=== PATIENT | male | born 1940 | race Two or more races ===

== ENCOUNTER 2016-09-08 14:14 | Outpatient (CLI) | payer MEDICARE | END 2016-09-08 23:59 | disposition home health service (06) | LOC: WOU 14:14 | PROVIDERS: ATTEND Specialist | DX: E11.621 Type 2 diabetes mellitus with foot ulcer (principal); L97.424 Non-pressure chronic ulcer of left heel and midfoot with necrosis of bone; Z89.612 Acquired absence of left leg above knee; E11.29 Type 2 diabetes mellitus with other diabetic kidney complication; E11.42 Type 2 diabetes mellitus with diabetic polyneuropathy; I25.10 Atherosclerotic heart disease of native coronary artery without angina pectoris; E11.69 Type 2 diabetes mellitus with other specified complication; M86.471 Chronic osteomyelitis with draining sinus, right ankle and foot; B96.5 Pseudomonas (aeruginosa) (mallei) (pseudomallei) as the cause of diseases classified elsewhere | CPT/HCPCS: 11044; A6402 ==

== ENCOUNTER 2016-09-29 13:30 | Outpatient (CLI) | payer MEDICARE | END 2016-09-29 23:59 | disposition home health service (06) | LOC: WOU 13:30 | PROVIDERS: ATTEND Specialist | DX: E11.621 Type 2 diabetes mellitus with foot ulcer (principal); L97.412 Non-pressure chronic ulcer of right heel and midfoot with fat layer exposed; E11.52 Type 2 diabetes mellitus with diabetic peripheral angiopathy with gangrene; Z89.612 Acquired absence of left leg above knee; N28.9 Disorder of kidney and ureter, unspecified | CPT/HCPCS: 15275; A6402 ==

== ENCOUNTER 2016-10-06 13:38 | Outpatient (CLI) | payer MEDICARE | END 2016-10-06 23:59 | disposition home health service (06) | LOC: WOU 13:38 | PROVIDERS: ATTEND Specialist | DX: E11.621 Type 2 diabetes mellitus with foot ulcer (principal); L97.412 Non-pressure chronic ulcer of right heel and midfoot with fat layer exposed; E11.9 Type 2 diabetes mellitus without complications; M86.471 Chronic osteomyelitis with draining sinus, right ankle and foot; E11.42 Type 2 diabetes mellitus with diabetic polyneuropathy; Z89.611 Acquired absence of right leg above knee; E11.22 Type 2 diabetes mellitus with diabetic chronic kidney disease; N28.9 Disorder of kidney and ureter, unspecified; I25.10 Atherosclerotic heart disease of native coronary artery without angina pectoris | CPT/HCPCS: 15275; A6402; Q4131 ×2 ==

== ENCOUNTER 2016-10-13 14:17 | Outpatient (CLI) | payer MEDICARE | END 2016-10-13 23:59 | disposition home health service (06) | LOC: WOU 14:17 | PROVIDERS: ATTEND Specialist | DX: E11.621 Type 2 diabetes mellitus with foot ulcer (principal); L97.413 Non-pressure chronic ulcer of right heel and midfoot with necrosis of muscle; Z89.612 Acquired absence of left leg above knee; I25.10 Atherosclerotic heart disease of native coronary artery without angina pectoris; E11.29 Type 2 diabetes mellitus with other diabetic kidney complication; N28.9 Disorder of kidney and ureter, unspecified; E11.69 Type 2 diabetes mellitus with other specified complication; M86.471 Chronic osteomyelitis with draining sinus, right ankle and foot | CPT/HCPCS: 11043; A6402 ==

== ENCOUNTER 2016-11-03 14:13 | Outpatient (CLI) | payer MEDICARE | END 2016-11-03 23:59 | disposition home health service (06) | LOC: WOU 14:13 | PROVIDERS: ATTEND Specialist | DX: E11.621 Type 2 diabetes mellitus with foot ulcer (principal); L97.414 Non-pressure chronic ulcer of right heel and midfoot with necrosis of bone; E11.9 Type 2 diabetes mellitus without complications; M86.471 Chronic osteomyelitis with draining sinus, right ankle and foot; I25.10 Atherosclerotic heart disease of native coronary artery without angina pectoris; Z89.612 Acquired absence of left leg above knee | CPT/HCPCS: 11044; 87070; 87077; 87186; 88305 ×2; 88311; 88312; A6402 ==

== ENCOUNTER 2016-11-10 14:15 | Outpatient (CLI) | payer MEDICARE | END 2016-11-10 23:59 | disposition home health service (06) | LOC: WOU 14:15 | PROVIDERS: ATTEND Specialist | DX: E11.69 Type 2 diabetes mellitus with other specified complication (principal); L89.614 Pressure ulcer of right heel, stage 4; M86.471 Chronic osteomyelitis with draining sinus, right ankle and foot; Z83.3 Family history of diabetes mellitus; Z87.891 Personal history of nicotine dependence; Z89.612 Acquired absence of left leg above knee; I25.10 Atherosclerotic heart disease of native coronary artery without angina pectoris; Z79.899 Other long term (current) drug therapy | CPT/HCPCS: 11042; A6402 ==

== ENCOUNTER 2016-11-17 14:15 | Outpatient (CLI) | payer MEDICARE | END 2016-11-17 23:59 | disposition home health service (06) | LOC: WOU 14:15 | PROVIDERS: ATTEND Specialist | DX: E11.621 Type 2 diabetes mellitus with foot ulcer (principal); L97.412 Non-pressure chronic ulcer of right heel and midfoot with fat layer exposed; E11.42 Type 2 diabetes mellitus with diabetic polyneuropathy; Z89.612 Acquired absence of left leg above knee; E11.69 Type 2 diabetes mellitus with other specified complication; M86.471 Chronic osteomyelitis with draining sinus, right ankle and foot | CPT/HCPCS: 15275; A6402; Q4133; 11042 ==

== ENCOUNTER 2016-11-24 14:13 | Outpatient (CLI) | payer MEDICARE | END 2016-11-24 23:59 | disposition home health service (06) | LOC: WOU 14:13 | PROVIDERS: ATTEND Specialist | DX: E11.621 Type 2 diabetes mellitus with foot ulcer (principal); L97.414 Non-pressure chronic ulcer of right heel and midfoot with necrosis of bone; E11.42 Type 2 diabetes mellitus with diabetic polyneuropathy; Z89.612 Acquired absence of left leg above knee; E11.69 Type 2 diabetes mellitus with other specified complication; M86.471 Chronic osteomyelitis with draining sinus, right ankle and foot; B96.5 Pseudomonas (aeruginosa) (mallei) (pseudomallei) as the cause of diseases classified elsewhere | CPT/HCPCS: 15275; A6402 ==

== ENCOUNTER 2016-12-01 14:00 | Outpatient (CLI) | payer MEDICARE | END 2016-12-01 23:59 | disposition home health service (06) | LOC: WOU 14:00 | PROVIDERS: ATTEND Specialist | DX: E11.621 Type 2 diabetes mellitus with foot ulcer (principal); L89.614 Pressure ulcer of right heel, stage 4; E11.69 Type 2 diabetes mellitus with other specified complication; M86.471 Chronic osteomyelitis with draining sinus, right ankle and foot; E11.42 Type 2 diabetes mellitus with diabetic polyneuropathy; Z89.612 Acquired absence of left leg above knee; I25.10 Atherosclerotic heart disease of native coronary artery without angina pectoris; N28.9 Disorder of kidney and ureter, unspecified; Z79.899 Other long term (current) drug therapy; E11.22 Type 2 diabetes mellitus with diabetic chronic kidney disease; N18.9 Chronic kidney disease, unspecified | CPT/HCPCS: 11042; A6402 ==

== ENCOUNTER 2016-12-15 14:12 | Outpatient (CLI) | payer MEDICARE, BC | END 2016-12-15 23:59 | disposition home health service (06) | LOC: WOU 14:12 | PROVIDERS: ATTEND Specialist | DX: E11.621 Type 2 diabetes mellitus with foot ulcer (principal); L97.413 Non-pressure chronic ulcer of right heel and midfoot with necrosis of muscle; E11.42 Type 2 diabetes mellitus with diabetic polyneuropathy; Z89.612 Acquired absence of left leg above knee; Z90.5 Acquired absence of kidney; E11.69 Type 2 diabetes mellitus with other specified complication; M86.671 Other chronic osteomyelitis, right ankle and foot; B96.5 Pseudomonas (aeruginosa) (mallei) (pseudomallei) as the cause of diseases classified elsewhere | CPT/HCPCS: 15275; A6402; Q4133 ==

== ENCOUNTER 2016-12-22 13:56 | Outpatient (CLI) | payer MEDICARE, BC | END 2016-12-22 23:59 | disposition home health service (06) | LOC: WOU 13:56 | PROVIDERS: ATTEND Specialist | DX: E11.621 Type 2 diabetes mellitus with foot ulcer (principal); L89.614 Pressure ulcer of right heel, stage 4; E11.42 Type 2 diabetes mellitus with diabetic polyneuropathy; E11.69 Type 2 diabetes mellitus with other specified complication; M86.471 Chronic osteomyelitis with draining sinus, right ankle and foot; Z89.612 Acquired absence of left leg above knee; Z89.431 Acquired absence of right foot; Z90.5 Acquired absence of kidney; I25.10 Atherosclerotic heart disease of native coronary artery without angina pectoris; Z79.84 Long term (current) use of oral hypoglycemic drugs | CPT/HCPCS: 15275; A6402 ==

== ENCOUNTER 2016-12-29 14:21 | Outpatient (CLI) | payer MEDICARE, BC | END 2016-12-29 23:59 | disposition home health service (06) | LOC: WOU 14:21 | PROVIDERS: ATTEND Specialist | DX: E11.621 Type 2 diabetes mellitus with foot ulcer (principal); L97.413 Non-pressure chronic ulcer of right heel and midfoot with necrosis of muscle; E11.42 Type 2 diabetes mellitus with diabetic polyneuropathy; Z89.612 Acquired absence of left leg above knee; E11.69 Type 2 diabetes mellitus with other specified complication; Z90.5 Acquired absence of kidney; M86.471 Chronic osteomyelitis with draining sinus, right ankle and foot | CPT/HCPCS: 15275; A6402 ×2; Q4132 ==

== ENCOUNTER 2017-01-05 14:11 | Outpatient (CLI) | payer MEDICARE, BC | END 2017-01-05 23:59 | disposition home health service (06) | LOC: WOU 14:11 | PROVIDERS: ATTEND Specialist | DX: E11.621 Type 2 diabetes mellitus with foot ulcer (principal); L97.413 Non-pressure chronic ulcer of right heel and midfoot with necrosis of muscle; E11.42 Type 2 diabetes mellitus with diabetic polyneuropathy; E11.69 Type 2 diabetes mellitus with other specified complication; M86.471 Chronic osteomyelitis with draining sinus, right ankle and foot; Z89.612 Acquired absence of left leg above knee; E11.21 Type 2 diabetes mellitus with diabetic nephropathy; B96.5 Pseudomonas (aeruginosa) (mallei) (pseudomallei) as the cause of diseases classified elsewhere; Z83.3 Family history of diabetes mellitus; Z90.5 Acquired absence of kidney; I25.10 Atherosclerotic heart disease of native coronary artery without angina pectoris; Z79.899 Other long term (current) drug therapy | CPT/HCPCS: 11043; A6402 ==

== ENCOUNTER 2017-01-19 15:18 | Outpatient (CLI) | payer MEDICARE, BC | END 2017-01-19 23:59 | disposition home health service (06) | LOC: WOU 15:18 | PROVIDERS: ATTEND Specialist | DX: E11.621 Type 2 diabetes mellitus with foot ulcer (principal); E11.42 Type 2 diabetes mellitus with diabetic polyneuropathy; L97.412 Non-pressure chronic ulcer of right heel and midfoot with fat layer exposed; E11.69 Type 2 diabetes mellitus with other specified complication; M86.471 Chronic osteomyelitis with draining sinus, right ankle and foot; Z90.5 Acquired absence of kidney; Z89.612 Acquired absence of left leg above knee; Z89.431 Acquired absence of right foot; B96.5 Pseudomonas (aeruginosa) (mallei) (pseudomallei) as the cause of diseases classified elsewhere | CPT/HCPCS: 11042; A6402 ==

== ENCOUNTER 2017-01-26 13:15 | Outpatient (CLI) | payer MEDICARE, BC | END 2017-01-26 23:59 | disposition home health service (06) | LOC: WOU 13:15 | PROVIDERS: ATTEND Specialist | DX: E11.621 Type 2 diabetes mellitus with foot ulcer (principal); L97.414 Non-pressure chronic ulcer of right heel and midfoot with necrosis of bone; Z89.612 Acquired absence of left leg above knee; E11.69 Type 2 diabetes mellitus with other specified complication; M86.671 Other chronic osteomyelitis, right ankle and foot; B96.5 Pseudomonas (aeruginosa) (mallei) (pseudomallei) as the cause of diseases classified elsewhere | CPT/HCPCS: 11044; A6402 ==

== ENCOUNTER 2017-02-02 14:17 | Outpatient (CLI) | payer MEDICARE, BC | END 2017-02-02 23:59 | disposition home health service (06) | LOC: WOU 14:17 | PROVIDERS: ATTEND Specialist | DX: E11.621 Type 2 diabetes mellitus with foot ulcer (principal); L97.413 Non-pressure chronic ulcer of right heel and midfoot with necrosis of muscle; Z89.521 Acquired absence of right knee; E11.42 Type 2 diabetes mellitus with diabetic polyneuropathy; E11.69 Type 2 diabetes mellitus with other specified complication; M86.471 Chronic osteomyelitis with draining sinus, right ankle and foot; Z89.612 Acquired absence of left leg above knee; N28.9 Disorder of kidney and ureter, unspecified | CPT/HCPCS: 11043; A6402 ==

== ENCOUNTER 2017-02-09 14:24 | Outpatient (CLI) | payer MEDICARE, BC | END 2017-02-09 23:59 | disposition home health service (06) | LOC: WOU 14:24 | PROVIDERS: ATTEND Specialist | DX: E11.621 Type 2 diabetes mellitus with foot ulcer (principal); L97.413 Non-pressure chronic ulcer of right heel and midfoot with necrosis of muscle; E11.69 Type 2 diabetes mellitus with other specified complication; M86.471 Chronic osteomyelitis with draining sinus, right ankle and foot; E11.42 Type 2 diabetes mellitus with diabetic polyneuropathy; Z89.521 Acquired absence of right knee; Z89.612 Acquired absence of left leg above knee; Z90.5 Acquired absence of kidney | CPT/HCPCS: 11043; A6402 ==

== ENCOUNTER 2017-02-16 14:00 | Outpatient (CLI) | payer MEDICARE, BC | END 2017-02-16 23:59 | disposition home health service (06) | LOC: WOU 14:00 | PROVIDERS: ATTEND Specialist | DX: E11.621 Type 2 diabetes mellitus with foot ulcer (principal); L97.414 Non-pressure chronic ulcer of right heel and midfoot with necrosis of bone; E11.42 Type 2 diabetes mellitus with diabetic polyneuropathy; E11.69 Type 2 diabetes mellitus with other specified complication; M86.471 Chronic osteomyelitis with draining sinus, right ankle and foot; Z90.5 Acquired absence of kidney; Z83.3 Family history of diabetes mellitus; Z89.612 Acquired absence of left leg above knee; Z89.431 Acquired absence of right foot; Z79.899 Other long term (current) drug therapy | CPT/HCPCS: 11044; A6402 ==

== ENCOUNTER 2017-02-23 14:16 | Outpatient (CLI) | payer MEDICARE, BC | END 2017-02-23 23:59 | disposition home health service (06) | LOC: WOU 14:16 | PROVIDERS: ATTEND Specialist | DX: E11.621 Type 2 diabetes mellitus with foot ulcer (principal); L97.414 Non-pressure chronic ulcer of right heel and midfoot with necrosis of bone; E11.69 Type 2 diabetes mellitus with other specified complication; M86.471 Chronic osteomyelitis with draining sinus, right ankle and foot; E11.42 Type 2 diabetes mellitus with diabetic polyneuropathy; Z89.612 Acquired absence of left leg above knee; E11.22 Type 2 diabetes mellitus with diabetic chronic kidney disease; N18.9 Chronic kidney disease, unspecified; Z90.5 Acquired absence of kidney; Z89.431 Acquired absence of right foot | CPT/HCPCS: 11044; A6402 ==

== ENCOUNTER 2017-04-13 14:15 | Outpatient (CLI) | payer MEDICARE, BC | END 2017-04-13 23:59 | disposition home health service (06) | LOC: WOU 14:15 | PROVIDERS: ATTEND Specialist | DX: E11.621 Type 2 diabetes mellitus with foot ulcer (principal); L97.412 Non-pressure chronic ulcer of right heel and midfoot with fat layer exposed; Z89.612 Acquired absence of left leg above knee; E11.69 Type 2 diabetes mellitus with other specified complication; B96.5 Pseudomonas (aeruginosa) (mallei) (pseudomallei) as the cause of diseases classified elsewhere; M86.471 Chronic osteomyelitis with draining sinus, right ankle and foot; E11.42 Type 2 diabetes mellitus with diabetic polyneuropathy; Z90.5 Acquired absence of kidney; Z83.3 Family history of diabetes mellitus; Z82.49 Family history of ischemic heart disease and other diseases of the circulatory system | CPT/HCPCS: 11042; 11044; A6402 ==

== ENCOUNTER 2017-05-11 14:00 | Outpatient (CLI) | payer MEDICARE, BC | END 2017-05-11 23:59 | disposition home health service (06) | LOC: WOU 14:00 | PROVIDERS: ATTEND Specialist | DX: E11.621 Type 2 diabetes mellitus with foot ulcer (principal); L97.414 Non-pressure chronic ulcer of right heel and midfoot with necrosis of bone; E11.42 Type 2 diabetes mellitus with diabetic polyneuropathy; E11.69 Type 2 diabetes mellitus with other specified complication; M86.471 Chronic osteomyelitis with draining sinus, right ankle and foot; Z89.612 Acquired absence of left leg above knee; Z90.5 Acquired absence of kidney; Z83.3 Family history of diabetes mellitus; Z82.49 Family history of ischemic heart disease and other diseases of the circulatory system; E11.21 Type 2 diabetes mellitus with diabetic nephropathy | CPT/HCPCS: 11044; A6402 ==